=== PATIENT | male | born 1990 | race African-American/Black ===

== ENCOUNTER 2018-06-03 05:38 | Emergency (ER) | payer SELFPAY ==
[~2018-06-03] VITALS: Ht 180.3 cm; Wt 66.4 kg
[2018-06-03 05:39] VITALS: BP 111/74
== END 2018-06-03 07:29 | disposition home or self-care (01) ==
LOC: EDBD 05:38 → ED 07:10
DX: S92.355A Nondisplaced fracture of fifth metatarsal bone, left foot, initial encounter for closed fracture (principal); X58.XXXA Exposure to other specified factors, initial encounter; Y93.39 Activity, other involving climbing, rappelling and jumping off; Y92.410 Unspecified street and highway as the place of occurrence of the external cause; Y99.8 Other external cause status
CPT/HCPCS: 99284

== ENCOUNTER 2019-02-18 19:48 | Emergency (ER) | payer MEDICAID ==
[~2019-02-18] VITALS: Ht 175.3 cm; Wt 63.0 kg
[2019-02-18 19:51] VITALS: BP 127/73
[2019-02-18] MEDS ORDERED: LIDOCAINE-MPF 1%, 5ML ONE (20:08)
[2019-02-18] MEDS ORDERED: L.E.T SOLUTION TP ONE ×2 (20:08→20:30)
--- NOTE | 2019-02-18 20:18 | NUR ---
Pt walked to and witnessed asking another pt to "stay in the bathroom with him." notified. Charge aware.
[2019-02-18] MEDS ORDERED: LIDOCAINE 1%-EPI 1:100K, 20ML SQ ONE (20:30)
[2019-02-18] MEDS ORDERED: DIPH,PERTUSS(ACELL),TET VAC/PF 0.5 ML IM-VACC ONE (20:30)
[2019-02-18] MEDS ORDERED: BACITRACIN ZINC OINT 500U/GM, 0.9 GM ONE (20:51)
--- NOTE | 2019-02-18 21:14 | NUR ---
Pa at bedside for suture repair. Pt refusing bacitracin.
== END 2019-02-18 21:56 | disposition home or self-care (01) ==
LOC: ED 20:45
DX: S01.81XA Laceration without foreign body of other part of head, initial encounter (principal); F10.120 Alcohol abuse with intoxication, uncomplicated; X58.XXXA Exposure to other specified factors, initial encounter; Y93.89 Activity, other specified; Y92.410 Unspecified street and highway as the place of occurrence of the external cause; Y99.8 Other external cause status
CPT/HCPCS: 12053